=== PATIENT | female | born 1970 | race Caucasian/White ===

== ENCOUNTER 2017-02-16 23:34 | Emergency (ER) | payer OTHER ==
[2017-02-17 00:05] VITALS: BP 120/56; PULSE 63; TEMP 98.7; BMI 209.4
--- NOTE | 2017-02-17 01:46 | PDOC ---
History of Present Illness - General Chief Complaint: Constipation Stated Complaint: COLD SYMPTOMS/COUGH/HEADACHE Time Seen by Provider: 02/17/17 01:02 - History of Present Illness Initial Comments: 02/17/17 01:32 CHIEF COMPLAINT: cold symptoms, chronic constipation HISTORY OF PRESENT ILLNESS: 46 yo F with hx of chronic constipation presents to ED with cough, body ache, headache, and fatigue x 1 week. Patient has not taken any medication for her symptoms. She states her son's girlfriend has also been sick recently. She also reports that she has been vomiting "a lot" because she is "always constipated, I always have to use suppositories or enemas in order to use the bathroom." She does report a bowel movement yesterday "but only with an enema." PAST MEDICAL HISTORY: as per HPI FAMILY HISTORY: Denies SOCIAL HISTORY: Denies tobacco, alcohol, illicit drug use. SURGICAL HISTORY: hysterectomy, hernia repair ALLERGIES: No known drug allergies REVIEW OF SYSTEMS General/Constitutional: Denies fever or chills. Denies weakness, weight change. HEENT: Denies change in vision. Denies ear pain or discharge. Denies sore throat. Cardiovascular: Denies chest pain or shortness of breath. Respiratory: Dry cough x 1 week. Denies wheezing, or hemoptysis. Gastrointestinal: Denies nausea, vomiting, diarrhea or constipation. Denies rectal bleeding. Genitourinary: Denies dysuria, frequency, or change in urination. Musculoskeletal: Denies joint or muscle swelling or pain. Denies neck or back pain. Skin and breasts: Denies rash or easy bruising. Neurologic: Denies headache, vertigo, loss of consciousness, or loss of sensation. PHYSICAL EXAM General Appearance: Well-appearing, appropriately dressed. No apparent distress , no intoxication. HEENT: EOMI, PERRLA, normal ENT inspection, normal voice, TMs normal, pharynx normal. No conjunctival pallor. No photophobia, scleral icterus. Respiratory/Chest: Lungs CTAB. Cardiovascular: RRR. S1, S2. Gastrointestinal/Abdominal: Mildly distended, soft, nontender abdomen. Hypoactivebowel sounds. No tenderness or rebound tenderness. No organomegaly , pulsatile mass, guarding, hernia, hepatomegaly, splenomegaly. Musculoskeletal/Extremities: Normal inspection. FROM of all extremities, normal capillary refill. Pelvis Stable. No CVA tenderness. No tenderness to extremities, pedal edema, swelling, erythema or deformity. Integumentary: Appropriate color, dry, warm. No cyanosis, erythema, jaundice or rash Neurologic: pipe line repairer II-XII intact. Fully oriented, alert. Appropriate mood/affect. Motor strength 5/5. No appreciable EOM palsy, facial droop or sensory deficit. Past History - Past Medical History Allergies/Adverse Reactions: Allergies Allergy/AdvReac Type Severity Reaction Status Date / Time No Known Allergies Allergy Verified 02/17/17 00:02 Home Medications: Ambulatory Orders Sulfamethoxazole/Trimethoprim [Bactrim Ds Tablet] 1 each PO BID #14 tablet 03/29 Belladonna Alkaloids/Phenobarb [] 1 tab PO TID #10 tablet 07/06/12 Ondansetron [Zofran] 4 mg PO TID #10 tablet 07/06/12 Guaifenesin/Codeine Phosphate [Guaifenesin AC Cough Syrup] 15 ml PO QID PRN # 473 liquid MDD 60ml 02/17/17 Ibuprofen [Motrin -] 400 mg PO TID PRN #21 tablet 02/17/17 Lactulose [Enulose] 10 gm PO DAILY #90 ml 02/17/17 Anemia: No Asthma: No Cancer: No Cardiac Disorders: No CVA: No COPD: No CHF: No DVT: No Dementia: No Diabetes: No Dialysis: No GI Disorders: No Disorders: No HTN: No Hypercholesterolemia: No HIV: No Kidney Stones: No Liver Disease: No Psychiatric Problems: No Suicide Attempt (Hx): No Seizures: No - Surgical History Abdominal Surgery: Yes (HERNIA REPAIR) - Psycho/Social/Smoking Cessation Hx Anxiety: No Suicidal Ideation: No Smoking Status: No Smoking History: Never smoked Have you smoked in the past 12 months: No Number of Cigarettes Smoked Daily: 0 Information on smoking cessation initiated: No Hx Alcohol Use: No Drug/Substance Use Hx: No Substance Use Type: None *Physical Exam - Vital Signs Last Vital Signs Temp Pulse Resp BP Pulse Ox 98.7 F 63 20 120/56 100 02/17/17 00:02 02/17/17 00:02 02/17/17 00:02 02/17/17 00:02 02/17/17 00:02 ED Treatment Course - RADIOLOGY Radiology Studies Ordered: Category Date Time Status ABDOMEN FLAT & UPRIGHT [RAD] Stat Radiology 02/17/17 01:17 Taken Medical Decision Making - Medical Decision Making 02/17/17 03:59 46 yo F with hx of chronic constipation presents to ED with cough and myalgias. -Influenza rapid swab -abdomen x-ray, r/o SBO X-ray negative for SBO, moderate fecal matter visualized. -Lactulose -Guaifenesin AC -ibuprofen Above scripts sent to pharm; advised patient to take medication as prescribed and follow up with PCP and GI by the end of the week. Advised patient of signs and symptoms for return to ER: patient verbalized understanding and agrees to plan. *DC/Admit/Observation/Transfer Diagnosis at time of Disposition: Viral syndrome - Discharge Dispostion Disposition: HOME Condition at time of disposition: Stable Admit: No - Prescriptions Prescriptions: Lactulose [Enulose] 10 gm PO DAILY #90 ml Guaifenesin/Codeine Phosphate [Guaifenesin AC Cough Syrup] 15 ml PO QID PRN # 473 liquid MDD 60ml PRN Reason: Cough Ibuprofen [Motrin -] 400 mg PO TID PRN #21 tablet PRN Reason: Pain - Referrals Referrals: Rufina Jorgensen MD [Primary Care Provider] - - Patient Instructions Printed Discharge Instructions: DI for Viral Syndrome Additional Instructions: Please take medications as prescribed. Do not drive or operate machinery while taking the cough medicine. If you experience any new or worsening symptoms, please return to the ER.
[2017-02-17] MEDS ORDERED: ALBUTEROL SO4 2.5/IPRATROPIUM 0.5 INH SOL 3 ML VIAL.NEB. NEB ONE (02:56)
== END 2017-02-17 03:46 | disposition home or self-care (01) ==
LOC: JER 23:34
PROC: 3E0F7GC Introduction of Other Therapeutic Substance into Respiratory Tract, Via Natural or Artificial Opening (ICD-10-PCS; principal; 2017-02-16)
DX: B34.9 Viral infection, unspecified (principal)
CPT/HCPCS: 74020-TC; 87804; 99281-25